=== PATIENT | female | born 1985 | race Caucasian/White ===

== ENCOUNTER 2018-04-24 11:10 | Emergency (ER) | payer MEDICAID ==
[~2018-04-24] VITALS: Ht 172.7 cm; Wt 60.5 kg
[2018-04-24 11:25] VITALS: Ht 172.7 cm; Wt 60.5 kg
[2018-04-24] MEDS ORDERED: CYCLOBENZAPRINE10 MG PO (11:29)
[2018-04-24] MEDS ORDERED: VOLTAREN100 MG PO (11:30)
[2018-04-24] MEDS ORDERED: VALIUM10 MG PO (11:30)
[2018-04-24] MEDS ORDERED: BACTROBAN CREAM15 GM (11:31)
[2018-04-24] MEDS ORDERED: SUMATRIPTAN SUC25 MG PO (11:31)
[2018-04-24 11:59] LABS: BASOPHILS 0.6 % (0-2); EOSINOPHILS 1.4 % (0-7); HEMATOCRIT 40.3 % (36.0-48.0); HEMOGLOBIN 13.6 g/dL (12-16); IMMATURE GRANULOCYTES 0.3 % (0-5); LYMPHOCYTES 27.1 % (15-50); MCH 31.9 pg (26.0-34.0); MCHC 33.7 g/dL (31.0-37.0); MCV 94.6 fL (80.0-100.0); MONOCYTES 7.4 % (2-11); NEUTROPHILS 63.2 % (40-80); PLATELET COUNT 237 10x3/uL (130-400); RBC 4.26 10x6/uL (4.00-5.40); RDW 12.2 % (11.5-14.5); WBC 7.8 10x3/uL (4.8-10.8)
[2018-04-24 12:36] LABS: ALBUMIN 3.9 g/dL (3.4-5.0); ALKALINE PHOSPHATASE 73 U/L (46-116); ALT (SGPT) 141 U/L (10-68); BILIRUBIN - TOTAL 0.81 mg/dL (0.2-1.3); CALC OSMOLALITY 276 mosm/kg (275-300); CALCIUM 8.6 mg/dL (8.5-10.1); CARBON DIOXIDE 29.5 mmol/L (21.0-32.0); CHLORIDE - SERUM 105 mmol/L (98-107); CREATININE - SERUM 0.8 mg/dL (0.6-1.3); GLUCOSE 86 mg/dL (74-106); POTASSIUM - SERUM 3.8 mmol/L (3.5-5.1); PROTEIN - SERUM 7.4 g/dL (6.4-8.2); SODIUM 139 mmol/L (136-145); UREA NITROGEN 13 mg/dL (7-18); eGFR NON AFRICAN AMERICAN 87 mL/min (90-120)
[2018-04-24 12:47] LABS: CKMB 0.6 U/L (0.0-3.6); TROPONIN-I < 0.017 ng/mL (0.000-0.060)
[2018-04-24 13:52] VITALS: BP 100/65
== END 2018-04-24 13:52 | disposition home or self-care (01) ==
LOC: D.ER 11:10
PROVIDERS: Family Medicine
DX: R07.9 Chest pain, unspecified (principal); Z87.820 Personal history of traumatic brain injury; F17.200 Nicotine dependence, unspecified, uncomplicated

== ENCOUNTER 2018-12-25 11:45 | Emergency (ER) | payer MEDICAID ==
[~2018-12-25] VITALS: Ht 172.7 cm; Wt 61.2 kg
[~2018-12-25 11:45] MED LIST: BACTROBAN CREAM15 GM; CYCLOBENZAPRINE10 MG PO; SUMATRIPTAN SUC25 MG PO; VALIUM10 MG PO; VOLTAREN100 MG PO
[2018-12-25 11:48] VITALS: Ht 172.7 cm; Wt 61.2 kg
[2018-12-25] MEDS ORDERED: TOPAMAX50 MG PO ×2 (11:50→12:38)
[2018-12-25] MEDS ORDERED: BC POWDER (11:50)
[2018-12-25] MEDS ORDERED: XANAX1 MG PO (11:51)
[2018-12-25] MEDS ORDERED: FLAGYL70 GM VG (12:38)
[2018-12-25] MEDS ORDERED: IMITREX50 MG PO (12:38)
[2018-12-25 13:02] LABS: APPEARANCE CLEAR (CLEAR); BILIRUBIN NEGATIVE (NEGATIVE); COLOR YELLOW (YELLOW); GLUCOSE NEGATIVE (NEGATIVE); KETONE NEGATIVE (NEGATIVE); NITRITE NEGATIVE (NEGATIVE); PROTEIN TRACE mg/dL (NEGATIVE); UROBILINOGEN NORMAL (NORMAL)
[2018-12-25 13:03] LABS: BACTERIA MANY /hpf (NONE SEEN); RED CELLS - URINE 0-5 /hpf (0-5)
[2018-12-25 13:04] LABS: AMORPHOUS SEDIMENT >1+ /lpf (NONE SEEN); MUCUS <1+ /lpf (NONE SEEN)
[2018-12-25 13:06] LABS: BASOPHILS 0.4 % (0-2); EOSINOPHILS 1.6 % (0-7); HEMATOCRIT 38.4 % (36.0-48.0); IMMATURE GRANULOCYTES 0.1 % (0-5); MCH 31.9 pg (26.0-34.0); MCHC 33.9 g/dL (31.0-37.0); MCV 94.3 fL (80.0-100.0); MEAN PLATELET VOLUME 9.8 fL (7.4-10.4); MONOCYTES 7.2 % (2-11); NEUTROPHILS 54.7 % (40-80); PLATELET COUNT 249 10x3/uL (130-400); RBC 4.07 10x6/uL (4.00-5.40); RDW 12.8 % (11.5-14.5); WBC 7.5 10x3/uL (4.8-10.8)
[2018-12-25 13:10] LABS: UDS - AMPHET POSITIVE QUAL (NEGATIVE); UDS - BARB NEGATIVE QUAL (NEGATIVE); UDS - BENZO NEGATIVE QUAL (NEGATIVE); UDS - COCAINE NEGATIVE QUAL (NEGATIVE); UDS - OPIATE NEGATIVE QUAL (NEGATIVE); UDS - PCP NEGATIVE QUAL (NEGATIVE); UDS - THC NEGATIVE QUAL (NEGATIVE)
[2018-12-25 13:19] LABS: ALBUMIN 3.4 g/dL (3.4-5.0); ANION GAP 10.1 mmol/L (8-16); BILIRUBIN - TOTAL 0.2 mg/dL (0.2-1.3); CALCIUM 8.2 mg/dL (8.5-10.1); CARBON DIOXIDE 29.9 mmol/L (21.0-32.0); CREATININE - SERUM 1.5 mg/dL (0.6-1.3); MAGNESIUM - SERUM 2.1 mg/dL (1.8-2.4)
[2018-12-25] MEDS ORDERED: VIBRAMYCIN 100100 MG PO (13:47)
[2018-12-25 14:27] VITALS: BP 111/68
== END 2018-12-25 14:22 | disposition home or self-care (01) ==
LOC: D.ER 11:45
PROVIDERS: Emergency Medicine
DX: R56.1 Post traumatic seizures (principal); N76.0 Acute vaginitis; B96.89 Other specified bacterial agents as the cause of diseases classified elsewhere; N39.0 Urinary tract infection, site not specified

== ENCOUNTER 2020-12-27 06:34 | Emergency (ER) | payer BC ==
[~2020-12-27] VITALS: Ht 172.7 cm; Wt 61.4 kg
[~2020-12-27 06:34] MED LIST changes: +BC POWDER; +FLAGYL70 GM VG; +IMITREX50 MG PO; +METHOCARBAMOL500 MG PO; +TOPAMAX50 MG PO; +TORADOL10 MG PO; +VIBRAMYCIN 100100 MG PO; +XANAX1 MG PO
[2020-12-27 06:38] VITALS: BP 124/73; Ht 172.7 cm; Wt 61.4 kg
[2020-12-27 07:37] LABS: BASOPHILS 0.8 % (0-2); EOSINOPHILS 2.8 % (0-7); HEMATOCRIT 33.1 % (36.0-48.0); HEMOGLOBIN 10.9 g/dL (12-16); LYMPHOCYTE ABS# 1.55 10x3/uL (1.18-3.74); LYMPHOCYTES 30.8 % (15-50); MCH 30.3 pg (26.0-34.0); MCHC 32.9 g/dL (31.0-37.0); MCV 91.9 fL (80.0-100.0); MEAN PLATELET VOLUME 9.5 fL (7.4-10.4); NEUTROPHIL ABS# 2.95 10x3/uL (1.56-6.13); NEUTROPHILS 58.6 % (40-80); PLATELET COUNT 278 10x3/uL (130-400); RDW 13.8 % (11.5-14.5)
[2020-12-27 07:40] LABS: BILIRUBIN NEGATIVE (NEGATIVE); KETONE NEGATIVE (NEGATIVE); UROBILINOGEN NORMAL mg/dL (< 2)
[2020-12-27 07:42] LABS: NITRITE POSITIVE (NEGATIVE)
[2020-12-27 07:43] LABS: BACTERIA MANY HPF (NONE SEEN); WHITE CELLS - URINE 0-5 HPF (0-4)
[2020-12-27 07:49] LABS: HCG URINE NEGATIVE (NEGATIVE)
[2020-12-27 07:57] LABS: AMYLASE - SERUM 58 U/L (25-115); LIPASE 153 U/L (73-393)
[2020-12-27 08:02] LABS: CALC OSMOLALITY 276 mosm/kg (275-300); CALCIUM 8.6 mg/dL (8.5-10.1); CARBON DIOXIDE 28.2 mmol/L (21.0-32.0); CHLORIDE - SERUM 105 mmol/L (98-107); CREATININE - SERUM 0.8 mg/dL (0.6-1.3); GLUCOSE 81 mg/dL (74-106); SODIUM 139 mmol/L (136-145); UREA NITROGEN 12 mg/dL (7-18); eGFR NON AFRICAN AMERICAN 86 mL/min (90-120)
[2020-12-27 08:06] LABS: UDS - AMPHET POSITIVE QUAL (NEGATIVE); UDS - BARB NEGATIVE QUAL (NEGATIVE); UDS - BENZO POSITIVE QUAL (NEGATIVE); UDS - COCAINE NEGATIVE QUAL (NEGATIVE); UDS - OPIATE NEGATIVE QUAL (NEGATIVE); UDS - PCP NEGATIVE QUAL (NEGATIVE); UDS - THC NEGATIVE QUAL (NEGATIVE)
[2020-12-27 08:13] LABS: ALBUMIN 3.4 g/dL (3.4-5.0); ALKALINE PHOSPHATASE 148 U/L (30-120); ALT (SGPT) 118 U/L (10-68); BILIRUBIN - TOTAL 0.34 mg/dL (0.2-1.3); CKMB 1.1 U/L (0.0-3.6); CREATINE KINASE 59 UL (21-215); PROTEIN - SERUM 7.3 g/dL (6.4-8.2)
[2020-12-27 08:14] LABS: TROPONIN-I < 0.017 ng/mL (0.000-0.060)
[2020-12-27] MEDS ORDERED: MACROBID100 MG PO (10:13)
[2020-12-27] MEDS ORDERED: CEPHALEXIN500 M1 PO (10:13)
[2020-12-27] MEDS ORDERED: ACETAMINOPHEN500 M1 PO (10:15)
[2020-12-27] MEDS ORDERED: IBUPROFEN800 MG PO (10:15)
[2020-12-27] MEDS ORDERED: CYCLOBENZAPRINE10 MG PO (10:15)
== END 2020-12-27 10:25 | disposition home or self-care (01) ==
LOC: D.ER 06:34
PROVIDERS: Family Medicine
DX: R10.9 Unspecified abdominal pain (principal); R53.83 Other fatigue; R59.1 Generalized enlarged lymph nodes; F15.10 Other stimulant abuse, uncomplicated; N39.0 Urinary tract infection, site not specified